=== PATIENT | female | born 1995 | race Two or more races ===

== ENCOUNTER 2018-02-20 19:20 | Emergency (ER) | payer OTHER ==
[~2018-02-20] VITALS: Ht 162.6 cm; Wt 92.0 kg
[2018-02-20] MEDS ORDERED: SODIUM CHLORIDE 0.9% 1,000 ML IV ONE (21:39)
[2018-02-20 21:58] LABS: BASOPHILS % 0.4 % (0.0-2.0); HEMATOCRIT. 40.4 % (36.0-48.0); HEMOGLOBIN. 13.6 g/dL (12.0-16.0); LYMPHOCYTES % 40.7 % (20.0-50.0); MEAN CORPUSCULAR HEMOGLOBIN 30.7 pg (28.0-32.0); MEAN CORPUSCULAR VOLUME 90.8 fL (81.0-99.0); MEAN PLATELET VOLUME 8.1 fl (7.4-10.4); MONOCYTES % 6.7 % (2.0-8.0); NEUTROPHILS % 50.2 % (40.0-76.0); PLATELET 291 x1000/uL (130-400); RED BLOOD CELL COUNT 4.45 mill/uL (4.2-5.4); RED CELL DISTRIBUTION WIDTH 12.1 % (11.6-14.6)
[2018-02-20 22:01] LABS: CLARITY URINE CLEAR (CLEAR); COLOR URINE YELLOW (YELLOW); KETONES URINE NEGATIVE (NEGATIVE); LEUKOCYTE ESTERASE URINE NEGATIVE (NEGATIVE); NITRITE URINE NEGATIVE (NEGATIVE); OCCULT BLOOD URINE 1+ (NEGATIVE); PH URINE 5.5 (4.5-8.0); PROTEIN URINE NEGATIVE (NEGATIVE); SPECIFIC GRAVITY URINE 1.005 (1.005-1.030); UROBILINOGEN URINE 0.2 E.U./dL (0.2-1.0)
[2018-02-20 22:04] LABS: CHLORIDE 104 mEq/L (98-107)
[2018-02-20 22:06] LABS: INR 0.9; PROTHROMBIN TIME 9.7 sec (9.4-11.6)
[2018-02-20 22:15] LABS: HCG SCREEN NEGATIVE
[2018-02-20] MEDS ORDERED: TETANUS, DIPHTHERIA, PERTUSSIS VAC/PF 0.5ML (>7YR OLD) IM ONE (22:15)
[2018-02-21] VITALS: BP 118/62
== END 2018-02-21 01:00 | disposition home or self-care (01) ==
LOC: ER 19:20
DX: R42 Dizziness and giddiness (principal); M25.561 Pain in right knee; J45.909 Unspecified asthma, uncomplicated; Z90.89 Acquired absence of other organs; W18.39XA Other fall on same level, initial encounter; Y93.89 Activity, other specified; Y92.89 Other specified places as the place of occurrence of the external cause; Y99.8 Other external cause status
CPT/HCPCS: 36415; 73562; 76830; 76856; 80053; 81003; 83690; 84702; 84703; 85025; 85610; 87086; 93005; 99285; J7030; Z7610

== ENCOUNTER 2020-11-02 08:21 | Emergency (ER) | payer MEDICAID, OTHER ==
[~2020-11-02] VITALS: Ht 162.6 cm; Wt 92.0 kg
[2020-11-02 08:22] VITALS: BP 150/87
[2020-11-02] MEDS ORDERED: KETOROLAC 30MG/ML VIAL IM ONE (08:45)
[2020-11-02] MEDS ORDERED: IBUPROFEN 600MG TABLET PO ONE (09:00)
[2020-11-02] MEDS ORDERED: NAPR-420 MT (09:32)
== END 2020-11-02 09:50 | disposition home or self-care (01) ==
LOC: ER 08:21
DX: S80.02XA Contusion of left knee, initial encounter (principal); S99.812A Other specified injuries of left ankle, initial encounter; W10.8XXA Fall (on) (from) other stairs and steps, initial encounter; Y93.01 Activity, walking, marching and hiking; Y92.89 Other specified places as the place of occurrence of the external cause; J45.909 Unspecified asthma, uncomplicated
CPT/HCPCS: 73564; 73610; 81025; 99284; J1885